=== PATIENT | female | born 1985 ===

== ENCOUNTER 2024-02-11 09:22 | Day surgery (SDC) | payer BC ==
[~2024-02-11] VITALS: Ht 165.1 cm; Wt 73.0 kg
[2024-02-11] MEDS ORDERED: ACETAMINOPHEN I.V. 1000 MG 100 ML IV ONE (10:21)
[2024-02-11 10:29] LABS: HCG,QUAL RESULT NEGATIVE (NEGATIVE)
[2024-02-11 10:55] VITALS: O2SAT 97
[2024-02-11] MEDS ORDERED: MEPERIDINE HCL/PF 25 MG/ML DISP.SYRIN IVP PRN (11:45)
[2024-02-11] MEDS ORDERED: METOCLOPRAMIDE HCL 10 MG/2 ML VIAL IVP PRN (11:45)
[2024-02-11] MEDS ORDERED: HYDROmorphone 1 MG/ML INJ. CARTRIDGE IVP PRN ×2 (11:45)
[2024-02-11] MEDS ORDERED: hydrALAZINE HCL 20 MG/ML VIAL IVP PRN (11:45)
[2024-02-11] MEDS ORDERED: LR 1,000 ML IV SCH (11:45)
[2024-02-11] MEDS ORDERED: LABETALOL 100 MG/ 20ML VIAL IVP PRN (11:45)
[2024-02-11] MEDS ORDERED: SUGAMMADEX SODIUM 200 MG/2 ML VIAL IV ONE (12:24)
[2024-02-11] MEDS ORDERED: ONDANSETRON HCL 4 MG/2 ML VIAL ONE (12:24)
[2024-02-11] MEDS ORDERED: OXYMETAZOLINE HCL 0.05% NASAL SPRAY NS ONE (12:24)
[2024-02-11] MEDS ORDERED: LR 1,000 ML IV.SOLN IV ONE (12:24)
[2024-02-11] MEDS ORDERED: ROCURONIUM BROMIDE 10 MG/ML (ZEMURON) ONE (12:24)
[2024-02-11] MEDS ORDERED: NS IRRIG SOLN 1000 ML IR ONE (12:24)
[2024-02-11] MEDS ORDERED: DEXAMETHASONE SOD PHOSPHATE 4 MG/ML VIAL ONE (12:24)
[2024-02-11] MEDS ORDERED: LIDOCAINE/EPI 1% 1:100000 20 ML VIAL ONE (12:24)
[2024-02-11] MEDS ORDERED: MIDAZOLAM HCL 2 MG/2 ML VIAL (VERSED) ONE (12:24)
[2024-02-11] MEDS ORDERED: fentaNYL CITRATE/PF 100 MCG/2 ML AMP ONE (12:24)
[2024-02-11] MEDS ORDERED: DESFLURANE 15 MIN GAS INH ONE (12:24)
[2024-02-11] MEDS ORDERED: WATER FOR IRRIGATION,STERILE 1,000 ML IRRIG.SOLN IR ONE (12:24)
[2024-02-11 15:37] VITALS: BP_SYST 102; PULSE 57; RESP 16
== END 2024-02-11 15:02 | disposition home or self-care (01) ==
LOC: SDS 09:22 → SMU 09:24 → SDS 15:02
PROVIDERS: ATTEND Otolaryngology
DX: J34.89 Other specified disorders of nose and nasal sinuses (principal); J34.2 Deviated nasal septum; D38.5 Neoplasm of uncertain behavior of other respiratory organs; J32.9 Chronic sinusitis, unspecified; G43.909 Migraine, unspecified, not intractable, without status migrainosus; E66.3 Overweight; Z68.26 Body mass index [BMI] 26.0-26.9, adult
CPT/HCPCS: 31256; 30520; 30140; 31240; 84703; 88304; J3490; J1100; J2250; J2405; J3010; J7120; J0131